=== PATIENT | female | born 2000 | race African-American/Black ===

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

== ENCOUNTER 2020-04-28 06:14 | Emergency (ER) | payer MEDICAID ==
[~2020-04-28] VITALS: Ht 165.1 cm; Wt 73.0 kg
[2020-04-28 06:17] VITALS: BP 148/100
== END 2020-04-28 07:56 | disposition left against medical advice (07) ==
LOC: ER 06:14
DX: E16.2 Hypoglycemia, unspecified (principal); G40.909 Epilepsy, unspecified, not intractable, without status epilepticus
CPT/HCPCS: 82962; 93005; 99283